=== PATIENT | male | born 1960 | race Caucasian/White ===

== ENCOUNTER 2016-10-25 09:41 | Outpatient (CLI) ==
[2016-10-25 10:06] LABS: BASOPHILS # (AUTO) 0.1 K/uL (0-0.2); BASOPHILS % (AUTO) 0.6 % (0.0-3.0); EOSINOPHILS # (AUTO) 0.1 K/ul (0.0-0.7); EOSINOPHILS % (AUTO) 1.2 % (0.0-7.0); HEMATOCRIT 42.4 % (42.0-52.0); HEMOGLOBIN 13.7 g/dl (14.0-18.0); IMMATURE GRANULOCYTE % (AUTO) 0.4 % (0.0-5.0); LYMPHOCYTES # (AUTO) 0.9 K/uL (0.60-3.4); LYMPHOCYTES % (AUTO) 8.5 (10.0-50.0); MEAN CORPUSCULAR HEMOGLOBIN 26.8 pg (27.0-31.0); MEAN CORPUSCULAR HGB CONC 32.3 (31.8-35.4); MEAN CORPUSCULAR VOLUME 82.8 fl (80.0-94.0); MONOCYTES # (AUTO) 0.8 K/uL (0.4-2.0); MONOCYTES % (AUTO) 7.3 (0-10); NEUTROPHILS # (AUTO) 8.4 K/ul (2.0-6.9); PLATELET COUNT 348 10^3/uL (140-440); RED BLOOD COUNT 5.12 10^6/ul (4.70-6.10); WHITE BLOOD COUNT 10.28 K/ul (4.2-10.2)
[2016-10-25 10:45] LABS: ALBUMIN 3.7 g/dL (3.4-5.0); ALBUMIN/GLOBULIN RATIO 0.97; ANION GAP 12.4; BILIRUBIN,TOTAL 0.96 mg/dL (0.00-1.20); BUN/CREATININE RATIO 15.38; CALCIUM 9.5 mg/dL (8.2-10.2); CREATININE 0.91 mg/dL (0.60-1.10); POTASSIUM 4.4 mmol/L (3.5-5.1); TOTAL PROTEIN 7.5 g/dL (6.4-8.2)
[2016-10-25 11:04] LABS: ERYTHROCYTE SEDIMENTATION RATE 32 mm/hr (0-15); ESR INTERNAL QC INTERNAL QC VALID
[2016-10-26 08:32] LABS: C-REACTIVE PROTEIN 118.9 mg/L (0.0-4.9); TESTOSTERONE 938 ng/dL (264-916)
== END 2016-10-25 09:42 | disposition home or self-care (01) ==
LOC: LAB 09:41
PROVIDERS: ATTEND Internal Medicine
DX: R51 Headache (principal); R00.0 Tachycardia, unspecified; R50.9 Fever, unspecified; I49.3 Ventricular premature depolarization
CPT/HCPCS: 36415; 80053; 82550; 83605; 84145; 84403; 84439; 84443; 85025; 85651; 86140; 86617; 87040; 87798

== ENCOUNTER 2017-11-09 09:12 | Outpatient (CLI) ==
--- NOTE | 2017-11-09 09:55 | US ---
EXAM: Right lower extremity venous Doppler History: Right lower extremity pain. Technique: Multiple sonographic images through the right lower extremity were obtained. Color duple x Doppler was used to interrogate vascular flow. Findings: The right common femoral, greater saphenous, profunda, superficial femoral, popliteal, per chavez, posterior tibial and anterior tibial veins demonstrate spontaneous flow with normal compressio n and normal augmentation. Impression: No sonographic evidence for deep venous thrombosis.
--- NOTE | 2017-11-09 10:36 | DI ---
EXAM: Two views of the pelvis. History: Pelvic pain. Findings: No acute fracture or dislocation. 2 mm round metallic soft tissue foreign body seen proje cting over the right inferior pubic ramus. Joint spaces are relatively preserved. Impression: No acute osseous abnormality.
--- NOTE | 2017-11-09 10:37 | DI ---
EXAM: Two views of the right hip. History: Right hip pain. Findings: No acute fracture or dislocation. Right hip joint space is relatively preserved. 2 mm ro und metallic soft tissue foreign body seen projecting over the soft tissues of the right inferior pub ic ramus. Impression: No acute osseous abnormality.
== END 2017-11-09 09:13 | disposition home or self-care (01) ==
LOC: RAD 09:12
PROVIDERS: ATTEND Internal Medicine
DX: M25.551 Pain in right hip (principal); M79.661 Pain in right lower leg; R10.2 Pelvic and perineal pain